=== PATIENT | male | born 1955 | race Two or more races ===

== ENCOUNTER 2020-05-18 06:08 | Emergency (ER) | payer OTHER ==
[~2020-05-18] VITALS: Ht 165.1 cm; Wt 68.0 kg
[2020-05-18] MEDS ORDERED: KETO10TA2 PO (10:23)
== END 2020-05-18 10:33 | disposition home or self-care (01) ==
LOC: ER 06:08
DX: G89.11 Acute pain due to trauma (principal); M79.642 Pain in left hand; M25.532 Pain in left wrist

== ENCOUNTER 2021-02-14 15:00 | Outpatient (CLI) | payer OTHER ==
[~2021-02-14 15:00] MED LIST: KETO10TA2 PO
== END 2021-02-14 15:20 | disposition home or self-care (01) ==
LOC: PPH VACUNA 15:00
PROVIDERS: ATTEND Emergency Medicine Pediatric Emergency Medicine
DX: Z23 Encounter for immunization (principal)